=== PATIENT | female | born 1945 | race African-American/Black ===

== ENCOUNTER 2020-07-17 20:46 | Inpatient (IN) | payer MEDICARE, OTHER ==
[~2020-07-17] VITALS: Ht 165.1 cm; Wt 108.6 kg
[~2020-07-17 20:46] MED LIST: CALC950T5; CETI10CA; DIAZ10TA3; DICY10CA55; FURO1TAB33 PO; GABA300C; METH750T3; MORP1CAP31 PO; MORP1TAB13; PERCOT; TRAZ100T3; [UNRECOGNIZED DRUG - CODE]
[2020-07-17] MEDS ORDERED: SODIUM CHLORIDE 0.9% 500 ML IV ONE (21:30)
[2020-07-17 22:19] LABS: Basophils # (auto) 0 10 ^3/uL (0-0.2); Basophils % (auto) 0.3 % (0.0-2.0); Eosinophils # (auto) 0.1 10 ^3/uL (0-0.8); Eosinophils % (auto) 1.5 % (0.0-7.0); Hematocrit 38.1 % (36.0-46.0); Hemoglobin 12.1 g/dL (12.2-16.2); Lymphocytes # (auto) 1.9 10 ^3/uL (0.4-5.4); Lymphocytes % (auto) 40.2 % (10.0-50.0); Mean Corpuscular Hemoglobin 28.2 pg (28.0-32.0); Mean Corpuscular Hgb Conc. 31.9 g/dL (32.0-36.0); Mean Corpuscular Volume 88.4 fL (80.0-100.0); Monocytes # (auto) 0.5 10 ^3/uL (0-1.3); Monocytes % (auto) 11.6 % (0.0-12.0); Neutrophils # (auto) 2.2 10 ^3/uL (1.6-8.6); Neutrophils % (auto) 46.4 % (37.0-80.0); Nucleated Red Blood Cells % 0.1 %; Platelet Count (auto) 178 10^3/uL (140-450); Red Cell Distribution Width 15.6 % (11.8-14.3); White Blood Cell 4.7 10^3/uL (4.4-10.8)
[2020-07-17 22:26] LABS: Urine Bacteria NONE SEEN /hpf (None Seen); Urine Blood Negative /uL (Negative); Urine Specific Gravity 1.025 (1.001-1.035); Urine WBC 1 /hpf (0 - 5)
[2020-07-17 22:35] LABS: INR 1.07 (0.9-1.15); Partial Thromboplastin Time 24.6 sec (23.0-31.2)
[2020-07-17 22:42] LABS: Alcohol, Urine < 3.0 mg/dL (0-10); Amphetamine Screen, Urine NEGATIVE (NEGATIVE); Barbiturate Scree,Urine NEGATIVE (NEGATIVE); Benzodiazephine Screen, Urine NEGATIVE (NEGATIVE); Cannabinoid Screen, Urine NEGATIVE (NEGATIVE); Cocaine Screen, Urine NEGATIVE (NEGATIVE); Opiate Scree,Urine NEGATIVE (NEGATIVE); Phencyclidine Screen, Urine NEGATIVE (NEGATIVE)
[2020-07-17 22:43] LABS: Albumin 3.6 g/dL (3.4-5.0); Anion Gap 8 (5-15); Blood Urea Nitrogen 19 mg/dL (7-18); Calcium 9.1 mg/dL (8.5-10.1); Carbon Dioxide 25 mmol/L (21-32); Chloride 106 mmol/L (98-107); Glucose 103 mg/dL (74-106); Potassium 4.1 mmol/L (3.5-5.1); Sodium 139 mmol/L (136-145)
[2020-07-17 22:48] LABS: Alanine Aminotransferase 15 U/L (13-56); Alkaline Phosphatase 141 U/L (45-117); Aspartate Aminotransferase 19 U/L (15-37); BUN/Creatinine Ratio 12.4; Bilirubin, Total 0.5 mg/dL (0.2-1.0); GFR African American 43 mL/min; GFR Non-African American 35 mL/min; Total Protein 7.7 g/dL (6.4-8.2)
[2020-07-18] VITALS (7 sets, daily range): BP systolic 119–190; BP diastolic 47–106
[2020-07-18] MEDS ORDERED: MORPHINE SULF INJ 2 MG/ML SYRINGE 1ML IV PRN (04:45)
[2020-07-18] MEDS ORDERED: NITROGLYCERIN 0.4 MG SL TAB SL PRN (04:45)
[2020-07-18] MEDS ORDERED: ACETAMINOPHEN 325 MG TAB PO PRN (04:45)
[2020-07-18] MEDS ORDERED: ONDANSETRON HCL 4 MG/2 ML VIAL IV PRN (04:45)
--- NOTE | 2020-07-18 06:35 | NUR ---
Telemetry admit from ER CANDE FERRARIA admitted to Telemetry unit SBAR received during transfer of pt from [facility] to bed. Pt not responding with words. Only response noted was pt's groan when HOB raised. Sl nod of head to answer that raising the HOB caused pain. Pt not localizing pain nor quantifying. Patient now on continuous telemetry monitoring, tele box #68 and telemetry reading on arrival to unit is SR with rate of 60. Patient placed on bedside oxygen @ 2lpm, weighed by bedscale and encouraged to call if they need something. Sitter at foot of bed. Bed position low and HOB elevated less than 15 degrees. Pt wiggling R foot then both; rocking of foot from side to side and dorsi/plantar stops with nurses hand touching of gently pressing feet.
--- NOTE | 2020-07-18 06:51 | NUR ---
UNABLE TO OBTAIN MEDICATION LIST OR PHARMACY PATIENT HAS LIST OF MEDICATIONS BUT IS UNABLE TO CONFIRM ACCURACY OF LIST. PATIENT IS APHASIC AND UNABLE TO ANSWER QUESTIONS. INFORMATION TAKEN FROM CHART AND MMA FIGHTER RN INFORMED.
[2020-07-18] MEDS: GABAPENTIN 300 MG CAP PO SCH ×2 (10:00→22:00)
[2020-07-18] MEDS: FUROSEMIDE 20 MG TAB PO SCH (10:00)
[2020-07-18] MEDS: PANTOPRAZOLE 40 MG TAB PO SCH (10:00)
[2020-07-18] MEDS ORDERED: hydrALAZINE HCL 20 MG/ML VL IV PRN (14:30)
--- NOTE | 2020-07-18 19:30 | NUR ---
Opening Shift Note Assumed care of patient, awake and alert. A&Ox1. Patient only oriented to name. Patient laying in bed. No S/S of distress/SOB or pain. Safety measures maintained by keeping the bed locked in lowest position, 2 side rails up, personal items and call light within reach. Instructed on POC and to call for assist PRN, will continue to monitor for changes Q1hr and PRN. Spoke with patient's sister Alisha about patient updates.
--- NOTE | 2020-07-19 05:05 | NUR ---
Assumed care of patient from DAVID Beckett. Patient resting comfortably in bed with no signs of distress. Will continue to assess.
[2020-07-19 05:16] VITALS: BP 120/60
--- NOTE | 2020-07-19 06:42 | NUR ---
Spoke to two family members [email or web address], the patient's sister and her niece, and gave them both updates on plan of care and status after confirming password.
[2020-07-19 07:49] LABS: Basophils # (auto) 0 10 ^3/uL (0-0.2); Basophils % (auto) 0.6 % (0.0-2.0); Eosinophils # (auto) 0.1 10 ^3/uL (0-0.8); Eosinophils % (auto) 1.4 % (0.0-7.0); Hematocrit 38.6 % (36.0-46.0); Hemoglobin 12.6 g/dL (12.2-16.2); Lymphocytes # (auto) 1.3 10 ^3/uL (0.4-5.4); Lymphocytes % (auto) 24.9 % (10.0-50.0); Mean Corpuscular Hemoglobin 28.6 pg (28.0-32.0); Mean Corpuscular Hgb Conc. 32.7 g/dL (32.0-36.0); Mean Corpuscular Volume 87.6 fL (80.0-100.0); Monocytes # (auto) 0.4 10 ^3/uL (0-1.3); Monocytes % (auto) 7.9 % (0.0-12.0); Neutrophils # (auto) 3.4 10 ^3/uL (1.6-8.6); Neutrophils % (auto) 65.2 % (37.0-80.0); Nucleated Red Blood Cells % 0.3 %; Platelet Count (auto) 182 10^3/uL (140-450); Red Blood Cells 4.41 10^6/uL (4.0-5.20); Red Cell Distribution Width 15.2 % (11.8-14.3); White Blood Cell 5.2 10^3/uL (4.4-10.8)
[2020-07-19 08:06] LABS: BUN/Creatinine Ratio 11.4; Calcium 9.1 mg/dL (8.5-10.1); Potassium 4.2 mmol/L (3.5-5.1)
--- NOTE | 2020-07-19 08:25 | NUR ---
Pt taken to radiology for CT scan.
--- NOTE | 2020-07-19 08:38 | NUR ---
Pt back to room from CT scan.
[2020-07-19 09:00] VITALS: BP 151/72
[2020-07-19] MEDS: FUROSEMIDE 20 MG TAB PO SCH (09:16)
[2020-07-19] MEDS: GABAPENTIN 300 MG CAP PO SCH ×2 (09:16→21:16)
[2020-07-19] MEDS: PANTOPRAZOLE 40 MG TAB PO SCH (09:17)
--- NOTE | 2020-07-19 10:10 | NUR ---
Dr. Verdugo at bed side to see pt, doctor discussed the pt's care, as per doctor, she will call pt's daughter to discussed the pt's plan of care.
[2020-07-19 13:00] VITALS: BP 156/88
--- NOTE | 2020-07-19 14:45 | NUR ---
sterilisation technician at bed side to do the EEG.
[2020-07-19 15:34] VITALS: BP 112/57
--- NOTE | 2020-07-19 15:45 | NUR ---
lead technical architect finished with EEG test.
--- NOTE | 2020-07-19 15:58 | NUR ---
EEG- ELECTROENCEPHALOGRAM COMPLETED ON 07/19/2020 @ 15:31
--- NOTE | 2020-07-19 16:20 | NUR ---
Paged Dr. Stoll / neurologist to inform him that EEG has been completed and to see if it can be read today, awaiting call back.
--- NOTE | 2020-07-19 16:56 | NUR ---
assessment Patient is a 75 year old female who lives home with her daughter Alejandra and functions with assistance. Patient has a cane, rollator, and cpap for home use. Patient uses the [facility] for her PCP. I informed patient and daughter Alejandra of consult for home health safety, PT, med management, vitals. Patient has no preference on who provides service. Alejandra agreed to [facility]. MD order has been sent to [facility]. Per Juliana at [facility] service will start 07/20/20. Alejandra has been notified as well as Vi HERNANDEZ. Alejandra verbalized understanding and agreed to discharge plan home. Addendum: 07/19/20 at 1700 by Irene MONTANEZ Amended: Links added.
[2020-07-19 17:00] VITALS: BP 170/94
--- NOTE | 2020-07-19 17:08 | NUR ---
Paged Dr. Stoll / neurologist to inform him that EEG has been completed and to see if it can be read today, awaiting call back.
--- NOTE | 2020-07-19 19:00 | NUR ---
Received call back from Dr. Stoll / neurologist to inform nurse that he will not be able to read the EEG test for tonight, pt will have to stay until tomorrow once the EEG has been read.
--- NOTE | 2020-07-19 19:45 | NUR ---
assumed care, pt. awake, no c/o pain, no sob.
[2020-07-19 22:00] VITALS: BP 150/72
[2020-07-20 05:00] VITALS: BP 148/68
[2020-07-20 09:00] VITALS: BP 124/73
[2020-07-20] MEDS ORDERED: amLODIPine BESYLATE 5 MG TAB PO ONE (09:45)
[2020-07-20] MEDS: PANTOPRAZOLE 40 MG TAB PO SCH (09:47)
[2020-07-20] MEDS: FUROSEMIDE 20 MG TAB PO SCH (09:47)
[2020-07-20] MEDS: GABAPENTIN 300 MG CAP PO SCH (09:47)
--- NOTE | 2020-07-20 10:28 | NUR ---
PAGED DR. URBAN RE: CLEARANCE FOR DISCHARGE.
--- NOTE | 2020-07-20 11:54 | NUR ---
SPOKE WITH DR. PERLA, SHE SAID SHE SPOKE WITH DR. URBAN AND HE CLEARED THE PT FOR DISCHARGE. PER DR. PERLA PT CAN GO HOME.
[2020-07-20 12:03] VITALS: BP 132/69
[2020-07-20 12:56] VITALS: BP 132/69
--- NOTE | 2020-07-20 13:21 | NUR ---
Discharge instructions given as ordered. Encourage to follow up with [facility] W[facility] as instructed. All questions and concerns addressed. Patient verbalized understanding. Medication reconciliation form completed and copy given to patient. IV removed with catheter intact, pressure dressing applied. Telemetry unit returned to ICU. Patient taken to vehicle via wheelchair with all personal belongings, accompanied by staff and family member. No distress noted at time of departure.
== END 2020-07-20 13:20 | disposition home health service (06) | DRG 91 ==
LOC: EDBD 20:46 → ER 21:03 → TELE 21:04 → TELE-WESTW 07-18 06:36
PROVIDERS: ADMIT Nurse Practitioner; ATTEND Internal Medicine
DX: G92 Toxic encephalopathy (principal); N17.0 Acute kidney failure with tubular necrosis; E87.2 Acidosis; N18.3 Chronic kidney disease, stage 3 (moderate); G89.4 Chronic pain syndrome; I12.9 Hypertensive chronic kidney disease with stage 1 through stage 4 chronic kidney disease, or unspecified chronic kidney disease; E11.22 Type 2 diabetes mellitus with diabetic chronic kidney disease; E78.5 Hyperlipidemia, unspecified; F17.200 Nicotine dependence, unspecified, uncomplicated; T40.605A Adverse effect of unspecified narcotics, initial encounter; I49.5 Sick sinus syndrome; Z82.49 Family history of ischemic heart disease and other diseases of the circulatory system; Z83.3 Family history of diabetes mellitus; Z95.0 Presence of cardiac pacemaker; Z98.84 Bariatric surgery status
CPT/HCPCS: 36415; 36600; 70450; 71045; 80048; 80053; 80307; 81001; 82140; 82805; 82962; 83605; 83735; 83880; 84484; 85025; 85610; 85730; 86141; 87040; 95819; 97163; G0378